=== PATIENT | male | born 1935 | race Caucasian/White ===

== ENCOUNTER → 2016-12-31 | Outpatient (CLI) | payer OTHER ==
[~2016-12-31] MED LIST: OMNIPAQUE 350 MG/ML, 75ML BOTTLE ONE
== END | disposition home or self-care (01) ==
LOC: CFH 09:07
PROVIDERS: ATTEND Family Medicine
DX: R91.8 Other nonspecific abnormal finding of lung field (principal); I51.7 Cardiomegaly; M47.894 Other spondylosis, thoracic region; M41.84 Other forms of scoliosis, thoracic region
CPT/HCPCS: 71260; Q9967

== ENCOUNTER → 2018-02-17 | Outpatient (CLI) | payer MEDICARE, OTHER | END | disposition home or self-care (01) | LOC: CFH 11:10 → EDSTATUS 11:30 | PROVIDERS: ATTEND Internal Medicine Critical Care Medicine | DX: I82.402 Acute embolism and thrombosis of unspecified deep veins of left lower extremity (principal) ==